=== PATIENT | male | born 1940 | race Caucasian/White ===

== ENCOUNTER 2016-10-24 11:55 | Emergency (ER) | payer MEDICARE, BC ==
[~2016-10-24] VITALS: Ht 182.9 cm; Wt 90.0 kg
[2016-10-24 12:01] VITALS: TEMP 98
[2016-10-24 13:15] LABS: HEMATOCRIT 43.2 % (42.0-52.0); HEMOGLOBIN 13.3 g/dl (13.5-18.0); MEAN CELL VOLUME 77 fl (80.0-100.0); MEAN CORPUSCULAR HEMOGLOBIN 24 pg (27.0-31.0); MEAN CORPUSCULAR HGB CONC 31 g/dl (33.0-37.0); MEAN PLATELET VOLUME 9.4 fl (7.4-10.4); PLATELET COUNT 228 K/mm3 (130-400); RED BLOOD COUNT 5.58 M/mm3 (4.20-5.60); REDCELL DISTRIBUTION WIDTH-CV 20.3 % (11.5-14.5); WHITE BLOOD COUNT 12.8 K/mm3 (4.8-10.8)
[2016-10-24 13:16] LABS: ADD PATHOLOGY DIFF REVIEW NO
[2016-10-24 13:18] LABS: ADJUSTED CALCIUM 9.3 mg/dL (8.4-10.2); ALBUMIN 3.7 gm/dL (3.5-5.0); BILIRUBIN,TOTAL 0.7 mg/dL (0.0-1.0); C-REACTIVE PROTEIN 8.9 mg/dL (0.0-0.9); CALCIUM 9.1 mg/dL (8.4-10.2); CREATININE, serum 1.32 mg/dL (0.66-1.25); POTASSIUM 4.1 mmol/L (3.4-5.0); TOTAL PROTEIN 7.4 gm/dL (6.4-8.2)
[2016-10-24 13:30] LABS: BAND 25 % (0-10); EOSINOPHIL 2 % (0-4); NEUTROPHILS 45 % (42.0-75.2); TOTAL CELLS COUNTED 100
[2016-10-24 13:31] LABS: ANISOCYTOSIS 2+; HYPOCHROMIA 1+
[2016-10-24] MEDS ORDERED: ASPIRIN 81M81 MG/TA2 PO (13:31)
[2016-10-24] MEDS ORDERED: IMITREX100 MG PO (13:31)
[2016-10-24] MEDS ORDERED: IMITREX ST6 MG/0.5 M SC (13:31)
[2016-10-24 13:32] LABS: MICROCYTOSIS 1+; PLATELET ESTIMATE NORMAL (NORMAL)
[2016-10-24] MEDS ORDERED: LASIX 20MG TABL20 MG PO (13:32)
[2016-10-24] MEDS ORDERED: DEPAKOTE500 MG PO (13:32)
[2016-10-24] MEDS ORDERED: THEO-DUR 2200 MG/TAB PO (13:32)
[2016-10-24] MEDS ORDERED: LIPITOR 40MG TA40 MG PO (13:32)
[2016-10-24] MEDS ORDERED: PLAVIX 75MG TAB75 MG PO (13:33)
[2016-10-24] MEDS ORDERED: ZESTRIL 20MG TA20 MG PO (13:33)
[2016-10-24] MEDS ORDERED: PROTONIX20 MG PO (13:33)
[2016-10-24] MEDS ORDERED: TOPAMAX 25MG25 M1 PO (13:33)
[2016-10-24] MEDS ORDERED: ELIQUIS 5MG PO (13:34)
[2016-10-24 14:06] LABS: PH 5 (5-8); SQUAMOUS EPITHELIAL None Seen /hpf; URINE APPEARANCE Clear; URINE BACTERIA None Seen /hpf; URINE BILIRUBIN Negative (NEGATIVE); URINE BLOOD Negative (NEGATIVE); URINE COLOR Yellow; URINE GLUCOSE Negative (NEGATIVE); URINE KETONE Negative (NEGATIVE); URINE RBC 0-2 /hpf; URINE UROBILINOGEN Negative (NEGATIVE); URINE WBC 0-2 /hpf
[2016-10-24] MEDS ORDERED: CIPRO 500MG TA500 MG PO (15:41)
[2016-10-24 15:56] VITALS: BP 132/88; PULSE 91
== END 2016-10-24 15:59 | disposition home or self-care (01) ==
LOC: COL.ER 11:55
PROVIDERS: Emergency Medicine
DX: R41.0 Disorientation, unspecified (principal); R10.32 Left lower quadrant pain; R93.5 Abnormal findings on diagnostic imaging of other abdominal regions, including retroperitoneum; R19.7 Diarrhea, unspecified; J44.9 Chronic obstructive pulmonary disease, unspecified; Z99.81 Dependence on supplemental oxygen; I71.4 Abdominal aortic aneurysm, without rupture; N20.0 Calculus of kidney
CPT/HCPCS: J7030; Q9967

== ENCOUNTER 2016-11-06 12:25 | Observation (INO) | payer MEDICARE, BC ==
[~2016-11-06] VITALS: Ht 182.9 cm; Wt 81.5 kg
[2016-11-06] VITALS (10 sets, daily range): BP systolic 123–167; BP diastolic 65–92; PULSE 77–108; TEMP 97.2–98.5
[~2016-11-06 12:25] MED LIST: ASPIRIN 81M81 MG/TA2 PO; CIPRO 500MG TA500 MG PO; DEPAKOTE500 MG PO; ELIQUIS 5MG PO; IMITREX ST6 MG/0.5 M SC; IMITREX100 MG PO; LASIX 20MG TABL20 MG PO; LIPITOR 40MG TA40 MG PO; PLAVIX 75MG TAB75 MG PO; PROTONIX20 MG PO; THEO-DUR 2200 MG/TAB PO; TOPAMAX 25MG25 M1 PO; ZESTRIL 20MG TA20 MG PO
[2016-11-06 13:06] LABS: HEMATOCRIT 40.8 % (42.0-52.0); HEMOGLOBIN 13.4 g/dl (13.5-18.0); MEAN CELL VOLUME 74 fl (80.0-100.0); MEAN CORPUSCULAR HEMOGLOBIN 24 pg (27.0-31.0); MEAN CORPUSCULAR HGB CONC 33 g/dl (33.0-37.0); MEAN PLATELET VOLUME 9.2 fl (7.4-10.4); PLATELET COUNT 417 K/mm3 (130-400); RED BLOOD COUNT 5.54 M/mm3 (4.20-5.60); REDCELL DISTRIBUTION WIDTH-CV 21.3 % (11.5-14.5); WHITE BLOOD COUNT 17.5 K/mm3 (4.8-10.8)
[2016-11-06 13:07] LABS: ADD PATHOLOGY DIFF REVIEW NO
[2016-11-06 13:24] LABS: CALCIUM 9.5 mg/dL (8.4-10.2); CREATININE, serum 0.93 mg/dL (0.66-1.25); POTASSIUM 3.8 mmol/L (3.4-5.0)
[2016-11-06 14:32] LABS: BAND 26 % (0-10); BASOPHIL 4 % (0-2); METAMYELOCYTE 1 % (0-0); NEUTROPHILS 29 % (42.0-75.2); TOTAL CELLS COUNTED 100
[2016-11-06 14:33] LABS: HYPOCHROMIA 2+; PLATELET ESTIMATE INCREASED (NORMAL); TARGET CELLS 1+
[2016-11-06 14:34] LABS: ANISOCYTOSIS 1+; POIKILOCYTOSIS 1+
[2016-11-06] MEDS ORDERED: DAZIDOX10 MG PO (14:44)
[2016-11-06] MEDS ORDERED: NITROSTAT0.4 MG/TAB SL (14:45)
[2016-11-06] MEDS ORDERED: FORADIL AERO0.012 MG IH (14:46)
[2016-11-06] MEDS ORDERED: COLACE 100100 MG/CAP PO (14:47)
[2016-11-07 01:39] VITALS: BP 162/91; PULSE 87; TEMP 97.2
[2016-11-07 05:24] VITALS: BP 145/80; PULSE 95; TEMP 98.2
[2016-11-07 09:51] VITALS: BP 120/76; PULSE 82; TEMP 97.8
[2016-11-07 13:09] VITALS: BP 128/69; PULSE 82; TEMP 97.6
[2016-11-07 18:20] VITALS: BP 138/78; PULSE 84; TEMP 97.6
[2016-11-07 21:38] VITALS: BP 124/69; PULSE 84; TEMP 97.2
[2016-11-08 01:10] VITALS: BP 141/79; PULSE 95; TEMP 98.3
[2016-11-08 05:46] VITALS: BP 151/83; PULSE 86; TEMP 99
[2016-11-08 09:30] VITALS: BP 128/82; PULSE 86; TEMP 98.3
== END 2016-11-08 13:13 | disposition home or self-care (01) ==
LOC: SDCO 12:25 → JCC 16:40 → SDCO 11-07 12:00 → JCC 11-08 13:10
PROVIDERS: Urology
DX: R10.32 Left lower quadrant pain (principal); N28.89 Other specified disorders of kidney and ureter; R10.31 Right lower quadrant pain; J44.9 Chronic obstructive pulmonary disease, unspecified; I10 Essential (primary) hypertension; I25.10 Atherosclerotic heart disease of native coronary artery without angina pectoris; I73.9 Peripheral vascular disease, unspecified; G43.909 Migraine, unspecified, not intractable, without status migrainosus; K21.9 Gastro-esophageal reflux disease without esophagitis; M19.90 Unspecified osteoarthritis, unspecified site; G44.89 Other headache syndrome; Z95.1 Presence of aortocoronary bypass graft; Z95.2 Presence of prosthetic heart valve; Z90.79 Acquired absence of other genital organ(s); Z87.891 Personal history of nicotine dependence; Z80.1 Family history of malignant neoplasm of trachea, bronchus and lung; Z80.41 Family history of malignant neoplasm of ovary; Z82.5 Family history of asthma and other chronic lower respiratory diseases
CPT/HCPCS: OP; A9284; C1769; C2617; G0378; G8978-GP; G8979-GP; G8980-GP; J0690; J1100; J2405; J2704; J3010; J7120; Q9967

== ENCOUNTER → 2016-11-21 | Outpatient (CLI) | payer MEDICARE, BC ==
[~2016-11-21] MED LIST changes: +COLACE 100100 MG/CAP PO; +DAZIDOX10 MG PO; +FORADIL AERO0.012 MG IH; +NITROSTAT0.4 MG/TAB SL
== END ==
LOC: COL.RAD 10:16
DX: K76.89 Other specified diseases of liver (principal); I71.4 Abdominal aortic aneurysm, without rupture; N28.89 Other specified disorders of kidney and ureter; Z96.0 Presence of urogenital implants; Z90.81 Acquired absence of spleen
CPT/HCPCS: Q9967